=== PATIENT | male | born 1985 | race Caucasian/White ===

== ENCOUNTER 2020-04-12 01:03 | Emergency (ER) | payer OTHER ==
[~2020-04-12] VITALS: Ht 193 cm; Wt 113.4 kg
[2020-04-12] MEDS ORDERED: Albuterol ud Inhalation HHN ONE (01:15)
[2020-04-12] MEDS ORDERED: Solu-MEDROL 125mg Inj IVP ONE (01:15)
--- NOTE | 2020-04-12 01:15 | NUR ---
ED Nurse Note: Patient walked into ED c/o SOB onset for the past 15 minutes now, patient reports of using his inhaler multiple times however found no relief. patient currently satting at 91% on room air, able to speak in clear sentences however pauses in between sentences to cath his breathe. patient is alert and oriented x4, ambulatory with a steady gait. patient placed in isolation room and placed on mobile product manager. will continue to monitor
--- NOTE | 2020-04-12 01:18 | Emergency Room Report ---
History of Present Illness General Chief Complaint: Asthma Source: Patient Present Illness HPI Is a 35-year-old male with a history of asthma. Presents with chief complaint of shortness of breath. Onset was acute and occur hour prior to arrival. He was lying down when he felt acute onset of shortness of breath. He took his inhaler as it did not help. Usually when he has asthma inhalers resolved pretty quickly. No fever chills. No cough or congestion. No chest pain. He recently flew from [place] to [place] and then drove from [place] to [place]. Denies any calf tenderness. Denies any family history of DVT or PE. Nothing made it better. Nothing made it worse. He had negative Covid testing last week prior to his flight Allergies: Coded Allergies: No Known Allergies (Unverified , 04/12/20) COVID-19 Screening Contact w/high risk pt: No Experienced COVID-19 symptoms?: No COVID-19 Testing performed [employer]: Yes - 04/03/20 COVID-19 Screening: Negative COVID-19 COVID-19 Testing Source: [facility] Patient History Past Medical History: see triage record, old chart reviewed, asthma Past Surgical History: none Pertinent Family History: none Social History: Denies: smoking Immunizations: other Reviewed Nursing Documentation: PMH: Agreed; PSxH: Agreed Nursing Documentation-PMH Hx Asthma: Yes Review of Systems Eye: Denies: eye pain, blurred vision ENT: Denies: ear pain, nose congestion, throat swelling Respiratory: Reports: shortness of breath; Denies: cough Cardiovascular: Denies: chest pain, palpitations Gastrointestinal: Denies: abdominal pain, diarrhea, nausea, vomiting Musculoskeletal: Denies: back pain, joint pain Skin: Denies: rash Neurological: Denies: headache, numbness Endocrine: Denies: increased thirst, increased urine Hematologic/Lymphatic: Denies: easy bruising All Other Systems: negative except mentioned in HPI Physical Exam Vital Signs Date Time Temp Pulse Resp B/P (MAP) Pulse Ox O2 Delivery O2 Flow Rate FiO2 04/12/20 01:07 98.1 105 18 147/80 (102) 91 Room Air Vitals with hypoxia Sp02 EP Interpretation: reviewed, normal General Appearance: well appearing, no apparent distress, alert Head: normocephalic, atraumatic Eyes: bilateral eye PERRL, bilateral eye EOMI ENT: hearing grossly normal, normal pharynx Neck: full range of motion, supple, no meningismus Respiratory: chest non-tender, lungs clear, normal breath sounds, other - Tachypneic Cardiovascular #1: regular rate, rhythm, no murmur Gastrointestinal: normal bowel sounds, non tender, no mass, no organomegaly, no bruit, non-distended Musculoskeletal: back normal, normal range of motion, gait/station normal Psychiatric: mood/affect normal Medical Decision Making Diagnostic Impression: Primary Impression: Asthma attack Qualified Codes: J45.21 - Mild intermittent asthma with (acute) exacerbation ER Course Patient presents with acute dyspnea. Initially pulse ox was 91% at triage but in his room he was 98 to 99% room air. Chest x-ray negative. Labs unremarkable. No evidence of ACS, PE, dissection to name a few. Patient is asymptomatic now. Will discharge home. Rhythm Strip Diag. Results EP Interpretation: yes Rate: 84 Rhythm: NSR, no PVC's, no ectopy Chest X-Ray Diagnostic Results Chest X-Ray Diagnostic Results : Chest X-Ray Ordered: Yes # of Views/Limited/Complete: 1 View Indication: Shortness of Breath EP Interpretation: Yes Interpretation: no consolidation, no effusion, no pneumothorax, no acute cardiopulmonary disease Impression: No acute disease Electronically Signed by: Bossman Lamb MD Last Vital Signs Date Time Temp Pulse Resp B/P (MAP) Pulse Ox O2 Delivery O2 Flow Rate FiO2 04/12/20 01:07 98.1 105 18 147/80 (102) 91 Room Air Status: improved Disposition: HOME, SELF-CARE Condition: Stable Scripts Prednisone* (PREDNISONE*) 20 Mg Tablet 40 MG ORAL DAILY, #8 TAB Prov: Bossman Lamb MD 04/12/20 Patient Instructions: Asthma, Adult Additional Instructions: Follow-up with your doctor in 7 days. Return if symptoms worsen. Bossman Lamb MD Apr 12, 2020 01:18
[2020-04-12 01:25] VITALS: BP 147/80
[2020-04-12 01:31] LABS: BASOPHILS % (AUTO) 1.3 % (0.0-2.0); EOSINOPHILS % (AUTO) 2.7 % (0.0-3.0); HEMATOCRIT 47.7 % (42.0-52.0); HEMOGLOBIN 16.2 G/DL (14.2-18.0); LYMPHOCYTES % (AUTO) 46.7 % (20.0-45.0); MEAN CORPUSCULAR VOLUME 90 FL (80-99); MONOCYTES % (AUTO) 9.1 % (1.0-10.0); NEUTROPHILS % (AUTO) 40.1 % (45.0-75.0); PLATELET COUNT 324 K/UL (150-450); RED CELL DISTRIBUTION WIDTH 11.3 % (11.6-14.8); WHITE BLOOD COUNT 7.7 K/UL (4.8-10.8)
[2020-04-12 01:43] LABS: ANION GAP 9 mmol/L (5-15); BLOOD UREA NITROGEN 17 mg/dL (7-18); CALCIUM 9.3 MG/DL (8.5-10.1); CARBON DIOXIDE 28 MMOL/L (21-32); CHLORIDE 104 MMOL/L (98-107); CREATININE 1.2 MG/DL (0.55-1.30); POTASSIUM 3.6 MMOL/L (3.5-5.1); SODIUM 141 MMOL/L (136-145)
[2020-04-12] MEDS ORDERED: PREDNISONE20 MG ORAL (02:32)
[2020-04-12 02:40] VITALS: BP 132/75
--- NOTE | 2020-04-12 02:40 | NUR ---
ER DISCHARGE NOTE: Patient is cleared to be discharged per ERMD, pt is aox4, on room air, with stable vital signs. pt was given dc and prescription instructions, pt was able to verbalize understanding, pt id band and iv site removed without complications. pt is able to ambulate with steady gait. pt took all belongings.
--- NOTE | 2020-04-12 14:41 | Diagnostic Imaging Report ---
Indication: Shortness of breath Technique: One view of the chest Comparison: none Findings: Lungs and pleural spaces are clear. Heart size is normal. Impression: No acute process
== END 2020-04-12 02:40 | disposition home or self-care (01) ==
LOC: EMR 01:32
DX: J45.21 Mild intermittent asthma with (acute) exacerbation (principal); Z79.899 Other long term (current) drug therapy
CPT/HCPCS: 36415; 71045; 80048; 84484; 85025; 85379; 86140; 94640; 96374; 99283; J2930